=== PATIENT | female | born 1975 | race Caucasian/White ===

== ENCOUNTER 2025-04-13 06:57 | Day surgery (SDC) | payer MEDICARE, MEDICAID ==
[~2025-04-13] VITALS: Ht 152.4 cm; Wt 86.2 kg
[2025-04-13] VITALS (7 sets, daily range): BP systolic 110–131; BP diastolic 59–91; PULSE 68–85; RESP 12–21; TEMP 98.4; O2SAT 97–99
[~2025-04-13 06:57] MED LIST: ATOR20TA66 PO; DICY20TA2 PO; FAMO-129 PO; GABA-532 PO; GUAN2TAB19 PO; HYDR25TA5 PO; LEVE500T PO; LEVO137T2 PO; LISI20TA28 PO; RISP3TAB77 PO; SIME80TA5 PO; TRAZ-256 PO; ringers solution, lacted 1,000 ML IV SCH; simethicone 40mg/0.6ml oral drops 15ml PO ONE
[2025-04-13] MEDS ORDERED: midazolam 1 mg/ML 2ml injection ONE (09:51)
[2025-04-13] MEDS ORDERED: propofol inj 20 ML IV ONE ×2 (09:57)
[2025-04-13] MEDS ORDERED: BUPIVAcaine 2.5mg/ml inj 50ml vial (contains preservative) ONE (11:34)
== END 2025-04-13 11:12 | disposition home or self-care (01) ==
LOC: PAS 06:57
PROVIDERS: ATTEND Internal Medicine Gastroenterology
DX: R19.5 Other fecal abnormalities (principal); K64.8 Other hemorrhoids; E11.9 Type 2 diabetes mellitus without complications; E03.9 Hypothyroidism, unspecified; E66.01 Morbid (severe) obesity due to excess calories; E78.5 Hyperlipidemia, unspecified; G47.33 Obstructive sleep apnea (adult) (pediatric); G40.909 Epilepsy, unspecified, not intractable, without status epilepticus; I10 Essential (primary) hypertension; K58.9 Irritable bowel syndrome, unspecified; M19.90 Unspecified osteoarthritis, unspecified site; M19.041 Primary osteoarthritis, right hand; M19.042 Primary osteoarthritis, left hand; Z68.37 Body mass index [BMI] 37.0-37.9, adult; Z98.890 Other specified postprocedural states
CPT/HCPCS: 45378; J2250; J2704; J3490; J7120; Z7512; A4615; A4620